=== PATIENT | female | born 1950 | race Two or more races ===

== ENCOUNTER 2024-08-24 11:45 | Inpatient (IN) | payer OTHER ==
[~2024-08-24] VITALS: Ht 157.5 cm; Wt 417.3 kg
[~2024-08-24 11:45] MED LIST: COZAAR50 MG PO; DAFLONEX-XL 11300 MG PO; SYNTHROID88 MCG PO; VAZALORE81 MG PO
[2024-08-27] MEDS ORDERED: CEFTRIAXONE SODIUM 2,000 MG VIAL IV ONE (12:30)
[2024-08-27] MEDS ORDERED: CHLORHEXIDINE GLUCONATE 120 ML BOTTLE TOP ONE (12:30)
[2024-08-27] MEDS ORDERED: METRONIDAZOLE/SODIUM CHLORIDE 500 MG/100 ML PIGGYBACK IV ONE (12:30)
[2024-08-27] MEDS ORDERED: BUPIVACAINE HCL 30 ML VIAL IJ ONE (12:45)
[2024-08-27] MEDS ORDERED: LIDOCAINE HCL 1%/EPINEPHRINE 20ML VIAL IJ ONE (12:45)
[2024-08-27] MEDS ORDERED: ONDANSETRON HCL 2 MG/ML VIAL IV PRN (13:30)
[2024-08-27] MEDS ORDERED: OxyCODONE HCL 5 MG TABLET (ROXICODONE) PO PRN (13:30)
[2024-08-27] MEDS ORDERED: DEXTROSE 50 % IN WATER 0.5 G/ML DISP.SYRIN IV PRN (13:30)
[2024-08-27] MEDS ORDERED: MORPHINE SULFATE 4 MG/ML CARTRIDGE IV PRN (13:30)
[2024-08-27] MEDS ORDERED: 0.9 % SODIUM CHLORIDE 1,000 ML IV SCH (13:30)
[2024-08-27] MEDS ORDERED: ACETAMINOPHEN 500 MG GEL..CAP PO SCH (14:00)
[2024-08-27] MEDS ORDERED: ONDANSETRON HCL 2 MG/ML VIAL IV ONE (14:25)
[2024-08-27] MEDS ORDERED: MORPHINE SULFATE 4 MG/ML VIAL IV ONE ×3 (14:25→16:15)
[2024-08-27] MEDS ORDERED: SUGAMMADEX SODIUM 200 MG/2 ML VIAL IV ONE (14:30)
[2024-08-27 15:01] LABS: HEMATOCRIT 40.9 % (36.0-45.00); HEMOGLOBIN 13.5 g/dL (12.0-15.00); MEAN CELL VOLUME 82.9 fL (80.00-100.00); MEAN CORPUSCULAR HEMOGLOBIN 27.3 pg (27.00-32.0); MEAN CORPUSCULAR HGB CONC 32.9 g/dl (32.0-36.0); PLATELET COUNT 193 K/uL (150-450); RED BLOOD COUNT 4.94 M/uL (4.00-6.00); RED CELL DISTRIBUTION WIDTH 14.5 % (11.5-14.5)
[2024-08-27] MEDS ORDERED: BUSPIRONE HCL15 MG (15:35)
[2024-08-27] MEDS ORDERED: METHYLPREDNISOLO4 MG (15:35)
[2024-08-27] MEDS ORDERED: ATORVASTATIN CA10 MG (15:35)
[2024-08-27 15:39] LABS: ALBUMIN 3.7 gm/dL (3.4-5.0); CREATININE SERUM 0.58 mg/dL (0.55-1.02); GFR 101.62; PHOSPHOROUS 3.3 mg/dL (2.5-4.9); POTASSIUM 3.91 mEq/L (3.5-5.1)
[2024-08-27] MEDS ORDERED: POLYETHYLENE GLYCOL 3350 17 GM BLIST.PACK PO SCH (17:00)
[2024-08-27] MEDS ORDERED: ENALAPRILAT DIHYDRATE 1.25 MG/ML VIAL IV PRN (17:00)
[2024-08-27] MEDS ORDERED: METRONIDAZOLE/SODIUM CHLORIDE 500 MG/100 ML PIGGYBACK IV SCH (17:00)
[2024-08-27] MEDS ORDERED: HYOSCYAMINE SULFATE 0.125 MG TAB.SUBL SL SCH (17:00)
[2024-08-27] MEDS ORDERED: GABAPENTIN 300 MG CAPSULE PO SCH (17:00)
[2024-08-27 18:20] VITALS: BP 160/72; O2SAT 98
[2024-08-27] MEDS ORDERED: FAMOTIDINE/PF 20 MG/2 ML VIAL IV PUSH SCH (21:00)
[2024-08-27] MEDS ORDERED: CELECOXIB 200 MG CAPSULE PO SCH (21:00)
[2024-08-28 01:26] VITALS: BP 146/80; O2SAT 96
[2024-08-28 06:54] LABS: HEMATOCRIT 42.4 % (36.0-45.00); HEMOGLOBIN 14.5 g/dL (12.0-15.00); MEAN CORPUSCULAR HEMOGLOBIN 27.7 pg (27.00-32.0); MEAN CORPUSCULAR HGB CONC 34.2 g/dl (32.0-36.0); PLATELET COUNT 182 K/uL (150-450); RED BLOOD COUNT 5.23 M/uL (4.00-6.00); RED CELL DISTRIBUTION WIDTH 14.3 % (11.5-14.5)
[2024-08-28 07:55] LABS: ALBUMIN 3.6 gm/dL (3.4-5.0); CALCIUM 8.8 mg/dL (8.5-10.1); CREATININE SERUM 0.52 mg/dL (0.55-1.02); GFR 115.27; MAGNESIUM 1.7 mg/dL (1.8-2.4); PHOSPHOROUS 3.1 mg/dL (2.5-4.9); POTASSIUM 3.24 mEq/L (3.5-5.1)
[2024-08-28 08:00] VITALS: BP 133/73; O2SAT 97
[2024-08-28] MEDS ORDERED: POTASSIUM CHLORIDE IN WATER 100 ML IV NR (15:15)
[2024-08-28] MEDS ORDERED: MAGNESIUM SULFATE IN WATER 50 ML IV NR (15:26)
[2024-08-28 16:00] VITALS: BP 109/61; O2SAT 97
[2024-08-28] MEDS ORDERED: ENOXAPARIN SODIUM 40 MG/0.4 ML SYRINGE SUBCUTANEO SCH (17:00)
[2024-08-29] VITALS: BP 114/57; O2SAT 98
[2024-08-29 08:00] VITALS: BP 127/77; O2SAT 98
[2024-08-29] MEDS ORDERED: ENOXAPARIN SODIUM 40 MG/0.4 ML SYRINGE SUBCUTANEO SCH (09:00)
[2024-08-29 16:55] VITALS: BP 115/72; O2SAT 85
[2024-08-29] MEDS ORDERED: LACTOBACILLUS ACIDOPHILUS 1 CAP CAP PO SCH (17:00)
[2024-08-30 00:58] VITALS: BP 92/60; O2SAT 95
[2024-08-30 09:21] VITALS: BP 112/70; O2SAT 96
[2024-08-30] MEDS ORDERED: INTESTINEX680 M1 PO (11:04)
[2024-08-30] MEDS ORDERED: PEPCID AC20 MG PO (11:04)
[2024-08-30] MEDS ORDERED: HYOSCYAMINE0.125 M1 SL (11:04)
[2024-08-30] MEDS ORDERED: TRAM1TAB98 PO (11:05)
== END 2024-08-30 12:46 | disposition home or self-care (01) | DRG 331 ==
LOC: SURG 08-27 07:00 → O/R 08-27 07:47 → SURG 08-27 11:45 → SURH 08-27 16:19
PROVIDERS: ADMIT Surgery; ATTEND Surgery
PROC: 0DBP4ZZ Excision of Rectum, Percutaneous Endoscopic Approach (ICD-10-PCS; 2024-08-27)
PROC: 0DTN4ZZ Resection of Sigmoid Colon, Percutaneous Endoscopic Approach (ICD-10-PCS; principal; 2024-08-27 07:00)
DX: K57.20 Diverticulitis of large intestine with perforation and abscess without bleeding (principal)

== ENCOUNTER 2024-09-11 18:26 | Inpatient (IN) | payer OTHER ==
[~2024-09-11] VITALS: Ht 167.6 cm; Wt 74.8 kg
[~2024-09-11 18:26] MED LIST changes: +ATORVASTATIN CA10 MG; +BUSPIRONE HCL15 MG; +HYOSCYAMINE0.125 M1 SL; +INTESTINEX680 M1 PO; +METHYLPREDNISOLO4 MG; +PEPCID AC20 MG PO; +TRAM1TAB98 PO
--- NOTE | 2024-09-11 19:22 | NUR ---
SE RECIBE PACIENTE ALERTA Y ORIENTADA LA CUAL REFIERE VENIR POR DIARREAS. PACIENTE NOTIFICA QUE FUE OPERADA POR DR. CATHIE BARAJAS DE UN CIERRE DE COLOSTOMIA EL Y DESDE ENTONCES SE ESPINOZA MANTENIDO CON DIARREAS.
[2024-09-11] MEDS ORDERED: LACTOBACILLUS ACIDOPHILUS 1 CAP CAP PO ONE (20:00)
[2024-09-11] MEDS ORDERED: ONDANSETRON HCL 2 MG/ML VIAL IV ONE (20:00)
[2024-09-11] MEDS ORDERED: 0.9 % SODIUM CHLORIDE 500 ML IV ONE (20:00)
[2024-09-11] MEDS ORDERED: FAMOTIDINE/PF 20 MG/2 ML VIAL IV ONE (20:00)
[2024-09-11] MEDS ORDERED: HYOSCYAMINE SULFATE 0.125 MG TAB.SUBL SL ONE (20:00)
--- NOTE | 2024-09-11 20:40 | NUR ---
SE ORIENTA A PACIENTE SOBRE ORDENES MEDICAS Y REFIERE ENTENDER. SE COLECTAN MUESTRAS DE LABORATORIO BAJO MEDIDAS ASEPTICAS. SE CANALIZA Y SE ADMINISTRAN MEDICAMENTOS ISSAC ORDEN MEDICA. SE NOTIFICA CT/PO PENDIENTE.
[2024-09-11 20:59] LABS: HEMATOCRIT 36.2 % (36.0-45.00); HEMOGLOBIN 12.3 g/dL (12.0-15.00); MEAN CORPUSCULAR HGB CONC 34.1 g/dl (32.0-36.0); PLATELET COUNT 302 K/uL (150-450); RED BLOOD COUNT 4.41 M/uL (4.00-6.00); RED CELL DISTRIBUTION WIDTH 14.2 % (11.5-14.5)
[2024-09-11 21:13] LABS: INR 1.09; PARTIAL THROMBOPLASTIN TIME 25.1 SECONDS (22.0-34.0); PROTHROMBIN TIME 11.8 SECONDS (9.0-11.5)
[2024-09-11 21:18] LABS: ALBUMIN 3.7 gm/dL (3.4-5.0); BILIRUBIN TOTAL 0.64 mg/dL (0.3-1.2); CALCIUM 9.3 mg/dL (8.5-10.1); CREATININE SERUM 0.71 mg/dL (0.55-1.02); GFR 80.47; GLOBULINA 3.9 G/DL (2.4-3.5); TOTAL PROTEIN 7.6 gm/dL (6.4-8.2)
[2024-09-11 21:24] LABS: POTASSIUM 2.85 mEq/L (3.5-5.1)
[2024-09-11] MEDS ORDERED: POTASSIUM CHLORIDE IN WATER 40 MEQ/100 ML PIGGYBAG IV STA (21:31)
[2024-09-11] MEDS ORDERED: RINGERS SOLUTION,LACTATED 1,000 ML IV SCH ×2 (21:45→22:15)
[2024-09-11] MEDS ORDERED: levoFLOXacin IN DEXTROSE 5 % 100 ML IV SCH (21:59)
[2024-09-11] MEDS ORDERED: METRONIDAZOLE/SODIUM CHLORIDE 100 ML IV SCH (22:00)
[2024-09-11] MEDS ORDERED: POTASSIUM CHLORIDE/D5-0.9%NACL 40 MEQ/1,000 ML PIGGYBAG IV ONE (22:00)
[2024-09-11] MEDS ORDERED: FAMOTIDINE/PF 20 MG in 0.9 % SODIUM CHLORIDE 8 ML IV PUSH SCH (22:03)
[2024-09-11 22:26] LABS: PH,URINE 6.5 (5.0-8.0); URINE APPEARANCE Clear; URINE BILIRRUBIN Negative (NEGATIVE); URINE BLOOD Large; URINE COLOR Yellow; URINE GLUCOSE Negative (NEGATIVE); URINE KETONE 15 (NEGATIVE); URINE LEUKOCYTE Trace; URINE NITRATE Negative; URINE PROTEIN Trace (NEGATIVE); URINE UROBILINOGEN 0.2 E.U./dl
[2024-09-11 22:27] LABS: URINE BACTERIA 21.4 uL (0.0-1933); URINE EPITHELIAL CELLS 12.3 uL (0.0-38.8); URINE RBC 85.3 uL (0.0-20.8); URINE WBC 62.9 uL (0.0-23.2)
[2024-09-11 22:28] LABS: URINE CAST 1.22 uL (0.0-1.40)
[2024-09-12] MEDS ORDERED: POTASSIUM CHLORIDE IN WATER 40 MEQ/100 ML PIGGYBAG IV SCH
[2024-09-12 03:43] VITALS: BP 126/73; O2SAT 98
[2024-09-12 10:21] VITALS: BP 112/66; O2SAT 97
[2024-09-12 16:00] VITALS: BP 135/72; O2SAT 100
[2024-09-13 00:39] VITALS: BP 121/75; O2SAT 98
[2024-09-13 08:49] VITALS: BP 120/65; O2SAT 98
[2024-09-13 19:00] VITALS: BP 119/57; O2SAT 100
[2024-09-14 00:53] VITALS: BP 119/76; O2SAT 99
[2024-09-14 08:00] VITALS: BP 127/63; O2SAT 100
[2024-09-14] MEDS ORDERED: VANCOMYCIN HCL 125 MG/7.5 ML BLIST.PACK PO SCH (09:00)
[2024-09-14 17:24] VITALS: BP 130/76; O2SAT 100
[2024-09-14] MEDS ORDERED: FAMOtidine 20 MG TABLET PO SCH (21:00)
[2024-09-14] MEDS ORDERED: LACTOBACILLUS ACIDOPHILUS 1 CAP CAP PO SCH (21:10)
[2024-09-15 00:45] VITALS: BP 115/65; O2SAT 97
[2024-09-15 07:53] LABS: HEMATOCRIT 37.4 % (36.0-45.00); HEMOGLOBIN 12.4 g/dL (12.0-15.00); MEAN CELL VOLUME 81.7 fL (80.00-100.00); MEAN CORPUSCULAR HEMOGLOBIN 27.1 pg (27.00-32.0); MEAN CORPUSCULAR HGB CONC 33.1 g/dl (32.0-36.0); PLATELET COUNT 287 K/uL (150-450); RED BLOOD COUNT 4.57 M/uL (4.00-6.00); RED CELL DISTRIBUTION WIDTH 14.2 % (11.5-14.5)
[2024-09-15 08:00] VITALS: BP 135/76; O2SAT 99
[2024-09-15 08:51] LABS: ALBUMIN 3.2 gm/dL (3.4-5.0); BILIRUBIN TOTAL 0.51 mg/dL (0.3-1.2); CALCIUM 8.7 mg/dL (8.5-10.1); CREATININE SERUM 0.62 mg/dL (0.55-1.02); GFR 94.09; GLOBULINA 3.2 G/DL (2.4-3.5); POTASSIUM 3.96 mEq/L (3.5-5.1); TOTAL PROTEIN 6.4 gm/dL (6.4-8.2)
[2024-09-15 08:56] LABS: C-REACTIVE PROTEIN 0.31 MG/DL (0.00-0.29)
[2024-09-15 16:56] VITALS: BP 138/76; O2SAT 99
[2024-09-15] MEDS ORDERED: LACTOBACILLUS ACIDOPHILUS 1 CAP CAP PO SCH (17:00)
[2024-09-15 23:30] VITALS: BP 124/71; O2SAT 99
[2024-09-16 08:00] VITALS: BP 131/74; O2SAT 97
[2024-09-17] VITALS: BP 131/72; O2SAT 98
[2024-09-17 08:24] VITALS: BP 120/64; O2SAT 99
[2024-09-17] MEDS ORDERED: VANCOMYCIN HCL125 MG PO (13:34)
== END 2024-09-17 14:07 | disposition home or self-care (01) | DRG 373 ==
LOC: ER 18:28 → SURH 22:53
PROVIDERS: Internal Medicine; Nurse Practitioner Family; ADMIT Surgery; ATTEND Surgery
PROC: BW21ZZZ Computerized Tomography (CT Scan) of Abdomen and Pelvis (ICD-10-PCS; principal; 2024-09-11)
DX: A04.72 Enterocolitis due to Clostridium difficile, not specified as recurrent (principal); E87.6 Hypokalemia; E86.0 Dehydration; E03.9 Hypothyroidism, unspecified